=== PATIENT | male | born 1965 | race Caucasian/White ===

== ENCOUNTER 2021-11-16 08:59 | Emergency (ER) | payer MEDICAID ==
[~2021-11-16] VITALS: Ht 177.8 cm; Wt 81.6 kg
--- NOTE | 2021-11-16 09:00 | NUR ---
BIB SELF C/O R HIP PAIN STARTED THIS MORNING. DENIES INJURY. BREATHING IS EVEN AND UNLABORED. AWAITING MD GARNER.
--- NOTE | 2021-11-16 09:10 | NUR ---
SEEN AND EXAMINED BY .
[2021-11-16] MEDS ORDERED: KETOROLAC TROMETHAMINE 15 MG/ML VIAL ONE (09:18)
--- NOTE | 2021-11-16 09:20 | NUR ---
BOILER TECHNICIAN AT BEDSIDE FOR XRAY.
[2021-11-16] MEDS ORDERED: KETOROLAC TROMETHAMINE INJ 30 MG/ML VIAL IM ONE (09:30)
[2021-11-16] MEDS ORDERED: IBUP-1955 PO (09:56)
--- NOTE | 2021-11-16 09:59 | NUR ---
CALLED DR. ROBLES OFFICE APPOINTMENT IS SET FOR: November AT [id number] [facility] [id number] PER LAYLA
[2021-11-16 10:14] VITALS: BP 140/83
== END 2021-11-16 10:14 | disposition home or self-care (01) ==
LOC: ER 09:04
DX: M25.551 Pain in right hip (principal); F15.10 Other stimulant abuse, uncomplicated; Z96.641 Presence of right artificial hip joint; Z60.2 Problems related to living alone
CPT/HCPCS: 73502; 96372; 99283; J1885